=== PATIENT | female | born 1930 | race Asian ===

== ENCOUNTER 2018-02-19 01:57 | Emergency (ER) | payer MEDICARE ==
[2018-02-19] MEDS ORDERED: TETANUS/DIPHTHERIA/PERTUSSIS 0.5 ML SYRINGE IM ONE (02:20)
[2018-02-19] MEDS ORDERED: LIDOCAINE 2% 10 ML MDV SUBQ STA (02:20)
[2018-02-19 02:31] LABS: BASOPHILS % (AUTO) 0.3 %; EOSINOPHILS # (AUTO) 0.1 10^3/uL (0.0-0.7); EOSINOPHILS % (AUTO) 0.7 %; HGB - HEMOGLOBIN 15.1 g/dL (12.0-16.0); LYMPHOCYTES # (AUTO) 0.8 10^3/uL (1.5-3.5); LYMPHOCYTES % (AUTO) 4.7 %; MEAN CORPUSCULAR HEMOGLOBIN 31.5 pg (27.0-31.0); MEAN CORPUSCULAR HGB CONC 33.6 g/dL (32.0-36.0); MEAN CORPUSCULAR VOLUME 93.7 fL (81.0-99.0); MEAN PLATELET VOLUME 8.7 fL (7.9-10.8); MONOCYTES # (AUTO) 1.3 10^3/uL (0.0-1.0); NEUTROPHILS # (AUTO) 14.2 10^3/uL (1.5-6.6); NEUTROPHILS % (AUTO) 86.3 %; PLT - PLATELET COUNT 249 10^3/uL (130-450); RED CELL DISTRIBUTION WIDTH 13.5 % (12.0-15.0); WHITE BLOOD COUNT 16.5 x10^3/uL (4.8-10.8)
[2018-02-19] MEDS ORDERED: SODIUM CHLORIDE 0.9% 1,000 ML IV ONE (02:32)
--- NOTE | 2018-02-19 02:34 | ED Physician Documentation ---
PD HPI HEAD INJURY - Stated complaint Stated Complaint: LIP LAC - Chief complaint Chief Complaint: Laceration - History obtained from History obtained from: Patient, Family - History of Present Illness Mechanism of head injury: Fell, Laceration Where head injury occurred: Home Timing - onset: Today Location of injury: Front Quality of pain: Pain Associated symptoms: LOC Similar symptoms before: Has not had sx before Recently seen: Not recently seen - Additional information Additional information: patient is an 87 year old female who is presenting to the emergency department for facial laceration and syncopal episode. Patient states that she had an upset stomach. she got up and went to the bathroom. after using the restroom she stood up and syncopized falling forward on tile floor. Patient is presenting with a lip laceration and nasal swelling. patient is no on blood thinners. Review of Systems Constitutional: denies: Fever, Chills Eyes: reports: Reviewed and negative Ears: denies: Drainage/discharge Nose: reports: Epistaxis Throat: reports: Dental pain / toothache Cardiac: denies: Chest pain / pressure, Palpitations Respiratory: denies: Wheezing GI: denies: Abdominal Pain, Nausea, Vomiting : reports: Reviewed and negative Skin: reports: Abrasion (s), Laceration (s) Musculoskeletal: denies: Neck pain, Back pain, Extremity pain Neurologic: reports: Syncope, Head injury Immunocompromised: denies: Immunocompromised PD PAST MEDICAL HISTORY - Past Medical History Past Medical History: Yes Cardiovascular: Hypertension - Past Surgical History Past Surgical History: Yes General: Appendectomy - Present Medications Home Medications: Ambulatory Orders Medication Instructions Recorded Confirmed Aspirin [Children's Aspirin] 02/19/18 Gabapentin [Neurontin] 02/19/18 Irbesartan/Hydrochlorothiazide 1 each PO 02/19/18 [Irbesartan-Hctz 150-12.5 mg Tb] Magnesium Oxide [Magnesium] 02/19/18 Montelukast [Singulair] 02/19/18 NIFEdipine [Nifedipine ER] 02/19/18 Nitrofurantoin Monohyd/M-Cryst 100 mg PO BID 5 Days capsule 02/19/18 [Macrobid 100 mg Capsule] Rosuvastatin Calcium [Crestor] 02/19/18 - Allergies Allergies/Adverse Reactions: Allergies Allergy/AdvReac Type Severity Reaction Status Date / Time naproxen [From Aleve] Allergy Unknown Verified 02/19/18 02:03 - Social History Does the pt smoke?: No Smoking Status: Never smoker Does the pt drink ETOH?: No Does the pt have substance abuse?: No - Immunizations Immunizations are current?: Yes PD ED PE NORMAL - Vitals Vital signs reviewed: Yes - General General: Alert and oriented X 3 - Neck Neck: No bony TTP - Cardiac Cardiac: RRR - Respiratory Respiratory: No respiratory distress - Abdomen Abdomen: Soft, Non tender, Non distended - Derm Derm: Normal color - Extremities Extremities: No deformity - Neuro Neuro: Alert and oriented X 3, No motor deficit, Normal speech Eye Opening: Spontaneous Motor: Obeys Commands Verbal: Oriented GCS Score: 15 - Psych Psych: Normal mood PD ED PE EXPANDED - HEENT HEENT: Head injury (lip laceration through vermilion border), Right nares epsitaxis HEENT Visual: 1 - laceration 2 - laceration Results - Vitals Vitals: Vital Signs - 24 hr 02/19/18 02/19/18 02/19/18 02:01 02:29 03:20 Temperature 36.5 C Heart Rate 86 87 88 Respiratory 16 16 16 Rate Blood Pressure 182/103 H 98/79 161/56 H O2 Saturation 95 95 95 02/19/18 04:14 Temperature Heart Rate 93 Respiratory 16 Rate Blood Pressure 132/58 H O2 Saturation 95 Oxygen O2 Source Room air - EKG (time done) 0226 Rate: Rate (enter#) (86) Rhythm: NSR Intervals: Prolonged [place] Ischemia: ST depression Compare to prior EKG: Old EKG unavailable - Labs Labs: Laboratory Tests 02/19/18 02/19/18 02/19/18 02:26 02:26 02:26 WBC 16.5 H RBC 4.80 Hgb 15.1 Hct 45.0 MCV 93.7 MCH 31.5 H MCHC 33.6 RDW 13.5 Plt Count 249 MPV 8.7 Neut # (Auto) 14.2 H Lymph # (Auto) 0.8 L [place] # (Auto) 1.3 H Eos # (Auto) 0.1 Baso # (Auto) 0.0 Absolute Nucleated RBC 0.01 Nucleated RBC % 0.0 Sodium 132 L Potassium 3.5 Chloride 96 L Carbon Dioxide 25 Anion Gap 11.0 BUN 16 Creatinine 0.7 Estimated GFR (MDRD) 79 L Glucose 142 H Calcium 9.2 Total Bilirubin 0.8 AST 35 ALT 23 Alkaline Phosphatase 61 Troponin I < 0.04 Total Protein 7.3 Albumin 4.2 Globulin 3.1 Albumin/Globulin Ratio 1.4 Lipase 30 Urine Color Urine Clarity Urine pH Ur Specific [place] Urine Protein Urine Glucose (UA) Urine Ketones Urine Occult Blood Urine Nitrite Urine Bilirubin Urine Urobilinogen Ur Leukocyte Esterase Urine RBC Urine WBC Ur Squamous Epith Cells Urine Bacteria Urine Casts Urine Mucus Ur Microscopic Review Urine Culture Comments 02/19/18 02:33 WBC RBC Hgb Hct MCV MCH MCHC RDW Plt Count MPV Neut # (Auto) Lymph # (Auto) [place] # (Auto) Eos # (Auto) Baso # (Auto) Absolute Nucleated RBC Nucleated RBC % Sodium Potassium Chloride Carbon Dioxide Anion Gap BUN Creatinine Estimated GFR (MDRD) Glucose Calcium Total Bilirubin AST ALT Alkaline Phosphatase Troponin I Total Protein Albumin Globulin Albumin/Globulin Ratio Lipase Urine Color YELLOW Urine Clarity HAZY Urine pH 5.5 Ur Specific [place] 1.025 Urine Protein NEGATIVE Urine Glucose (UA) NEGATIVE Urine Ketones NEGATIVE Urine Occult Blood SMALL H Urine Nitrite NEGATIVE Urine Bilirubin NEGATIVE Urine Urobilinogen 0.2 (NORMAL) Ur Leukocyte Esterase SMALL H Urine RBC 6-10 H Urine WBC 4-5 Ur Squamous Epith Cells MOD Squamous H Urine Bacteria Moderate H Urine Casts 6-10 Hyaline Casts Urine Mucus Few Strands Ur Microscopic Review INDICATED Urine Culture Comments NOT INDICATED - Rads (name of study) ct head Radiology: Final report received (age related changes, no acute intracranial pathology) ct facial bones Radiology: Final report received (no acute fractures or dislocations) Procedures - Laceration (location) lip Length in cm: 2 Wound type: Irregular Neurovascular status: Sensory intact, Motor intact, Vascular intact Anesthesia: Lidocaine 2% Wound Preparation: Irrigated copiously NS Deep layer closure: Vicryl Skin layer closure: Prolene, Size #-0 - enter number (6), Sutures - enter # (5) Other: Patient tolerated well, Dressing applied, Tetanus booster given Complexity: Intermediate - Regional nerve block Nerve block site: Infraorbital Right / left: Both Nerve block anesthesia: Lidocaine 2% Nerve block aftercare: Excellent anesthesia, Patient tolerated well PD MEDICAL DECISION MAKING - ED course Complexity details: reviewed old records, reviewed results, re-evaluated patient , considered differential, d/w patient, d/w family ED course: Patient was seen and examined at bedside. ekg was performed. labs were drawn and imaging was ordered. bilateral infraorbital blocks were performed. patient was treated with a fluid bolus. when patient returned from imaging patient's laceration was repaired. vicryl was used for the lip and prolene for the skin just above the lip and the border. Patient had no acute findings on imaging, but did have a leukocytosis and signs of a uti. patient was treated with macrobid and tylenol. Patient was at a moderate risk and was offered admission. Patient and daughter stated that she lived out of town and that they would take her back home and would follow up with their doctor. Patient and daughter were given detailed discharge and follow up instructions. Patient was stable for discharge with outpatient follow up. - Sepsis Event Vital Signs: Vital Signs - 24 hr 02/19/18 02/19/18 02/19/18 02:01 02:29 03:20 Temperature 36.5 C Heart Rate 86 87 88 Respiratory 16 16 16 Rate Blood Pressure 182/103 H 98/79 161/56 H O2 Saturation 95 95 95 02/19/18 04:14 Temperature Heart Rate 93 Respiratory 16 Rate Blood Pressure 132/58 H O2 Saturation 95 Oxygen O2 Source Room air Departure - Departure Disposition: 01 Home, Self Care Clinical Impression: Laceration, UTI (urinary tract infection), Syncope Condition: Good Instructions: ED Laceration Mouth Follow-Up: Antionette Hackett MD [Primary Care Provider] - Within 1 week Prescriptions: Nitrofurantoin Monohyd/M-Cryst [Macrobid 100 mg Capsule] 100 mg PO BID 5 Days capsule Comments: Your fall was caused at least in part by dehydration and urinary tract infection. For the urinary tract infection it is important that you stay well hydrated. You will be on antibiotics twice a day for 5 days. As for the laceration you should keep the area clean and dry. You should have your doctor take the stitches out in 5 days. you can take motrin or tylenol as needed for pain and you should ice your face at least 4 times a day. You will likely be more sore tomorrow. You may return to the emergency department at any time for new, worsening or uncontrollable symptoms.
[2018-02-19 02:36] LABS: BILIRUBIN,URINE NEGATIVE (NEGATIVE); GLUCOSE, URINE (UA) NEGATIVE (NEGATIVE); KETONES,URINE (UA) NEGATIVE (NEGATIVE); LEUKOCYTE ESTERASE, URINE SMALL (NEGATIVE); NITRITE,URINE NEGATIVE (NEGATIVE); OCCULT BLOOD,URINE SMALL (NEGATIVE); PH,URINE 5.5 PH (5.0-7.5); PROTEIN,URINE NEGATIVE (NEGATIVE); UROBILINOGEN,URINE 0.2 (NORMAL) E.U./dL (NORMAL)
[2018-02-19 02:39] LABS: CLARITY,URINE HAZY (CLEAR)
[2018-02-19 02:43] LABS: SQUAMOUS EPITHELIAL CELL,UR MOD Squamous (<= Few)
[2018-02-19 02:44] LABS: BACTERIA,URINE Moderate /HPF (None Seen); MUCUS,URINE Few Strands
[2018-02-19 02:56] LABS: ALBUMIN 4.2 g/dL (3.2-5.5); ALBUMIN/GLOBULIN RATIO 1.4 (1.0-2.2); BILIRUBIN,TOTAL 0.8 mg/dL (0.2-1.0); CALCIUM 9.2 mg/dL (8.5-10.3); CREATININE 0.7 mg/dL (0.4-1.0); TOTAL PROTEIN 7.3 g/dL (6.7-8.2)
--- NOTE | 2018-02-19 03:32 | CT Preliminary Report ---
Exam: CT HEAD W/O IMPRESSION: Generalized age-related cortical atrophic changes without evidence of acute intracranial abnormality. [facility] SITE ID: [id number]
--- NOTE | 2018-02-19 03:35 | CT Preliminary Report ---
Exam: CT FACIAL BONES W/O IMPRESSION: No acute facial bone fracture. [facility] SITE ID: [id number]
--- NOTE | 2018-02-19 03:35 | CT Report ---
EXAM: CT HEAD EXAM DATE: 02/19/2018 03:04 AM. CLINICAL HISTORY: Syncope. COMPARISON: None. TECHNIQUE: Multiaxial CT images were obtained from the foramen magnum to the vertex. Reformats: Coron al. IV contrast: None. In accordance with CT protocol optimization, one or more of the following dose reduction techniques w ere utilized for this exam: automated exposure control, adjustment of mA and/or KV based on patient s ize, or use of iterative reconstructive technique. FINDINGS: Parenchyma: No intraparenchymal hemorrhage. No evidence of mass, midline shift, or CT findings of acu te infarction. Basurto-white differentiation is distinct. Mild diffuse chronic microangiopathic white ma tter changes are evident. Extraaxial Spaces: Normal for age. No subdural or epidural collections identified. Ventricles: The ventricles and cortical sulci are moderately enlarged, consistent with age-related ti ssue loss. Sinuses and orbits: Postsurgical changes from cataract extractions are noted in the globes. The paran kmi and mastoid sinuses are not opacified. Bones: No evidence of fracture or calvarial defect. Other: Mild intracranial atherosclerosis is noted. IMPRESSION: Generalized age-related cortical atrophic changes without evidence of acute intracranial abnormality. [facility] Referring Provider Line: [phone] SITE ID: [id number]
--- NOTE | 2018-02-19 03:40 | CT Report ---
EXAM: CT MAXILLOFACIAL WITHOUT CONTRAST EXAM DATE: 02/19/2018 03:14 AM. CLINICAL HISTORY: Upper lip pain, head trauma. COMPARISONS: None. TECHNIQUE: Thin-section axial images were acquired of the face without contrast. Post-processing: Cor onal and sagittal reformats. Other: None. In accordance with CT protocol optimization, one or more of the following dose reduction techniques w ere utilized for this exam: automated exposure control, adjustment of mA and/or KV based on patient s ize, or use of iterative reconstructive technique. FINDINGS: Soft Tissue: The infratemporal fossa and parapharyngeal spaces are unremarkable. Orbits: Postsurgical changes from cataract extractions are noted in the globes. Bones: No fracture or bone lesion. Temporomandibular Joints: The temporomandibular joints are symmetric and normally located. Sinuses: A tiny mucous retention cyst is noted in the left maxillary sinus. The mastoid sinuses are n ot opacified. IMPRESSION: No acute facial bone fracture. [facility] Referring Provider Line: [phone] SITE ID: [id number]
[2018-02-19 04:15] VITALS: BP 132/58
[2018-02-19] MEDS ORDERED: BACITRACIN OINT TOP ONE ×2 (04:20→04:31)
[2018-02-19] MEDS ORDERED: ACETAMINOPHEN 325 MG TABLET PO STA (04:27)
[2018-02-19] MEDS ORDERED: NITROFURANTOIN MACRO 100 MG CAPSULE PO STA (04:27)
== END 2018-02-19 04:48 | disposition home or self-care (01) ==
LOC: ED 01:57
DX: S01.511A Laceration without foreign body of lip, initial encounter (principal); W18.30XA Fall on same level, unspecified, initial encounter; Y92.002 Bathroom of unspecified non-institutional (private) residence as the place of occurrence of the external cause; N39.0 Urinary tract infection, site not specified; R55 Syncope and collapse; R94.31 Abnormal electrocardiogram [ECG] [EKG]; I10 Essential (primary) hypertension; Z79.82 Long term (current) use of aspirin
CPT/HCPCS: 12051; 36415; 70450; 70486; 80053; 81001; 83690; 84484; 85025; 90471; 90715; 93005; 96360; 99284; A9270; 81003; 87086; 96372